=== PATIENT | female | born 1970 | race Caucasian/White ===

== ENCOUNTER 2022-10-25 09:00 | Day surgery (SDC) | payer BC ==
[~2022-10-25 09:00] MED LIST: Lactated Ringers 1,000 ML IV SCH; Midazolam 1 MG/ML 2 ML SDV ONE; Propofol 200 MG/20 ML SDV ONE; Sodium Chloride 0.9% 10 ML Syringe FLUSH PRN
[2022-10-25] MEDS ORDERED: Dexamethasone 10 MG/ML SDV IVPUSH ONE (10:30)
[2022-10-25] MEDS ORDERED: Ondansetron 4 MG/2 ML SDV IVPUSH ONE (10:30)
[2022-10-25] MEDS ORDERED: Scopolamine 1.5 MG Transdermal Patch ONE (10:33)
== END 2022-10-25 11:43 | disposition home or self-care (01) ==
LOC: LL.SDS 09:00
PROVIDERS: ATTEND Surgery
DX: Z12.11 Encounter for screening for malignant neoplasm of colon (principal); K57.30 Diverticulosis of large intestine without perforation or abscess without bleeding; K21.9 Gastro-esophageal reflux disease without esophagitis; R63.5 Abnormal weight gain; Z68.24 Body mass index [BMI] 24.0-24.9, adult; Z88.2 Allergy status to sulfonamides; Z80.0 Family history of malignant neoplasm of digestive organs; Z79.890 Hormone replacement therapy; Z79.899 Other long term (current) drug therapy
CPT/HCPCS: A9270-GY; J1100; J2250; J2405; J2704; J7120

== ENCOUNTER 2025-05-20 08:45 | Day surgery (SDC) | payer BC ==
[~2025-05-20 08:45] MED LIST changes: -Lactated Ringers 1,000 ML IV SCH
[2025-05-20] MEDS: Lactated Ringers 1,000 ML IV SCH (09:52)
[2025-05-20] MEDS ORDERED: Ondansetron 4 MG/2 ML SDV IVPUSH ONE (10:20)
== END 2025-05-20 11:40 | disposition home or self-care (01) ==
LOC: LL.SDS 08:45
PROVIDERS: ATTEND Surgery
DX: K21.9 Gastro-esophageal reflux disease without esophagitis (principal); E03.9 Hypothyroidism, unspecified; E78.5 Hyperlipidemia, unspecified; Z79.890 Hormone replacement therapy; Z79.899 Other long term (current) drug therapy
CPT/HCPCS: 00731; J2250; J2405; J2704; J7120